=== PATIENT | female | born 1990 | race Caucasian/White ===

== ENCOUNTER → 2018-04-26 | Outpatient (CLI) | payer OTHER ==
--- NOTE | 2018-04-26 16:38 | RADIOLOGY REPORT (SQ) ---
EXAM DESCRIPTION: C SP 4 OR 5 VIEWS COMPLETED DATE/TIME: 04/26/2018 4:21 pm REASON FOR STUDY: CERVICALGIA,PAIN IN RIGHT ARM M79.601 PAIN IN RIGHT ARM M54.2 CERVICALGIA COMPARISON: 02/24/2012 NUMBER OF VIEWS: Five views. TECHNIQUE: AP, lateral, obliques and odontoid radiographic images acquired of the cervical spine. LIMITATIONS: Oblique images are not optimally positioned. FINDINGS: MINERALIZATION: Normal. ALIGNMENT: The cervical spine is in flexion which may be positional in nature or related to some musc le spasm. VERTEBRAE: Vertebral bodies of normal height. DISCS: No significant osteophytes or sclerosis. Disc height maintained. FORAMINA: Not well evaluated due to suboptimal obliques. LATERAL AND POSTERIOR ELEMENTS: Facets, lateral masses and spinous processes without significant find ings. HARDWARE: None in the spine. SOFT TISSUES: No masses or calcifications. Lung apices clear. OTHER: No other significant finding. IMPRESSION: The cervical spine is in flexion. Exam is otherwise negative. TECHNICAL DOCUMENTATION: JOB ID: [id number] [employer]- All Rights Reserved Reading location - IP/workstation name: [email or web address]
== END ==
LOC: OD 15:55
PROVIDERS: ATTEND Physician Assistant
DX: M54.2 Cervicalgia (principal); M79.601 Pain in right arm
CPT/HCPCS: 72050

== ENCOUNTER → 2018-06-13 | Outpatient (CLI) | payer OTHER | LOC: LAB 17:53 | PROVIDERS: ATTEND Nurse Practitioner Family | DX: R30.0 Dysuria (principal); N30.90 Cystitis, unspecified without hematuria | CPT/HCPCS: 87086; 87088; 87186 ==

== ENCOUNTER → 2018-11-05 | Outpatient (CLI) | payer OTHER ==
[2018-11-05 13:05] LABS: FREE T3 4.95 pg/mL (2.77-5.27); FREE T4 (FREE THYROXINE) 0.88 ng/dL (0.78-2.19)
[2018-11-05 13:18] LABS: THYROID STIMULATING HORMONE 1.16 uIU/mL (0.47-4.68)
[2018-11-06 07:40] LABS: THYROID PEROXIDASE (TPO) AB 15 IU/mL (0-34)
[2018-11-06 08:52] LABS: THYROGLOBULIN AB SO <1.0 IU/mL (0.0-0.9)
== END ==
LOC: OD 11:16
PROVIDERS: ATTEND Surgery
DX: E04.1 Nontoxic single thyroid nodule (principal)
CPT/HCPCS: 36415; 84439; 84443; 84481; 86376

== ENCOUNTER 2018-12-15 05:35 | Observation (INO) | payer OTHER ==
[2018-12-08 09:50] LABS: HEMOGLOBIN 14.9 g/dL (12.0-15.5); MEAN CORPUSCULAR HEMOGLOBIN 30.4 pg (27.0-33.4); MEAN CORPUSCULAR HGB CONC 34.6 g/dL (32.0-36.0); MEAN CORPUSCULAR VOLUME 88 fl (80-97); PLATELET COUNT 195 10^3/uL (150-450); RED BLOOD COUNT 4.91 10^6/uL (3.72-5.28); RED CELL DISTRIBUTION WIDTH 12.7 % (11.5-14.0); WHITE BLOOD COUNT 6.5 10^3/uL (4.0-10.5)
[2018-12-08 10:15] LABS: ANION GAP 9 (5-19); BLOOD UREA NITROGEN 14 mg/dL (7-20); CALCIUM 10.1 mg/dL (8.4-10.2); CARBON DIOXIDE 29 mmol/L (22-30); CHLORIDE 107 mmol/L (98-107); GLUCOSE 103 mg/dL (75-110); POTASSIUM 4.8 mmol/L (3.6-5.0); SODIUM 144.7 mmol/L (137-145)
[~2018-12-15 05:35] MED LIST: CEFAZOLIN 1 GM/D5W RTU 1 GM/50 ML RTUPB IV PRN; DEXTROSE 5%-LACTATED RINGERS 1,000 ML IV PRN
[2018-12-15] MEDS ORDERED: CEFAZOLIN 1 GM/D5W RTU 1 GM/50 ML RTUPB IV ONE (06:25)
[2018-12-15] MEDS ORDERED: HYDROMORPHONE HCL INJ/PF 2 MG/ML AMPULE ONE (07:04)
[2018-12-15] MEDS ORDERED: MIDAZOLAM 2 MG/2 ML INJ ONE (07:04)
[2018-12-15] MEDS ORDERED: FENTANYL CITRATE INJ/PF 250 MCG/5 ML AMPULE ONE (07:04)
[2018-12-15] MEDS ORDERED: LIDOCAINE 2% INJ-PF (100 MG/5 ML) SYRINGE ONE (07:04)
[2018-12-15] MEDS ORDERED: PROPOFOL INJ 200 MG/20 ML VIAL IV ONE (07:05)
[2018-12-15] MEDS ORDERED: MICROFIBRILLAR COLLAGEN 1 GM PACK ONE (07:15)
[2018-12-15] MEDS ORDERED: SCOPOLAMINE HYDROBROMIDE 1.5 MG PATCH.TD72 ONE (07:20)
[2018-12-15] MEDS ORDERED: VASOPRESSIN INJ 20 UNIT/1 ML VIAL ONE (08:35)
[2018-12-15] MEDS ORDERED: SUGAMMADEX SODIUM 200 MG/2 ML SDV IV ONE (09:20)
[2018-12-15] MEDS ORDERED: MEPERIDINE HCL/PF INJ 25 MG/1 ML DISP.SYRIN IV PRN (09:34)
[2018-12-15] MEDS ORDERED: MORPHINE SULFATE 10 MG/ML INJ IV PRN ×2 (09:34→12:46)
[2018-12-15] MEDS ORDERED: PROMETHAZINE HCL INJ 25 MG/1 ML VIAL IV PRN ×2 (09:34)
[2018-12-15] MEDS ORDERED: FENTANYL CITRATE INJ/PF 100 MCG/2 ML AMPUL IV PRN ×3 (09:34)
[2018-12-15] MEDS ORDERED: DIPHENHYDRAMINE HCL 50 MG/ML VIAL IV PRN (09:34)
[2018-12-15] MEDS ORDERED: CEFAZOLIN INJ 1 GM VIAL ONE (11:43)
--- NOTE | 2018-12-15 12:42 | Operative Report ---
Operative Report DATE OF SURGERY: 12/15/18 PREOPERATIVE DIAGNOSIS: 1. Multinodular goiter with depressive symptoms and tr acheal deviation. 2. Morbid obesity. 3. Family history of thyroid cancer POSTOPERATIVE DIAGNOSIS: Same with hyperparathyroidism OPERATION: 1. Total thyroidectomy with isthmusectomy. 2. Right lower parathyroidectomy. 3. Extremely difficult modifier SURGEON: ABDI GAVIRIA 1[employer] RESEARCHER: FARZANEH OLIVARES ANESTHESIA: GA TISSUE REMOVED OR ALTERED: Right thyroid lobe; left thyroid lobe; nodule from right thyroid lobe; right lower parathyroid gland COMPLICATIONS: None ESTIMATED BLOOD LOSS: 75 cc INTRAOPERATIVE FINDINGS: See below PROCEDURE: The patient was seen in the preop holding area where the neck was marked for a standard transcervical incision by Dr. Gaviria. She was then taken to the main operating room where general anesthesia was induced. She was placed in the semi-lithotomy position, neck extended for optimal exposure to the anterior neck. Elevation of the upper back achieved with heat roll. Arms tucked at the sides. The neck was prepped and draped in a sterile fashion. Instrumentation was set up for open neck exploration. Surgical plan surgical timeout were conducted. A standard transcervical incision was made in the mid neck at the site of markings performed preoperatively. Superior and inferior skin and platysma flaps were raised with electrocautery. Sternohyoid and sternothyroid muscles divided midline along the septum. We approached the right thyroid lobe first because of the massive thyromegaly, and tracheal deviation to the left. The strap muscles were elevated off the anterior surface of the right thyroid lobe. The right lobe was multinodular, and significantly enlarged. Tracheal deviation to the left confirmed intraoperatively as well as during endotracheal intubation. The strap muscles came off of the anterior surface uneventful. We mobilized the inferior thyroid pole from its vascular attachments. The right inferior parathyroid gland was noted to be enlarged. The dissection was now taken methodically taking the loose areolar tissue off of the anterior and lateral aspect of the right lobe, moving cephalad, careful to now preserve the vasculature to the right upper parathyroid gland. We divided the isthmus uneventfully with electrocautery. Superior pole right side was now taken down betwee clips. Working a circumferential fashion, with the gland coming off of the anterior surface of the trachea uneventfully, we fully noted the right recurrent laryngeal nerve splayed out over 1 of the large nodules. The distance was approximately 2 cm from the normal contour of the nerve at this point in the tracheal groove. The dissection was performed meticulously with scissors. The nerve was carefully elevated off of the thyroid parenchyma, allowing it to receive gently in the lateral and posterior position. Because of the precarious position of the right recurrent laryngeal nerve, the increased level of technical difficulty dissecting it off of the gland, and the time required, the extremely difficult modifier is used in this documentation. Eventually all final attachments between the right lobe of the thyroid gland, and the lateral aspect of the trachea were divided. The specimen was broken up in a piecemeal fashion due to the Terry clamps. Right lobe was sent to pathology for permanent analysis as specimen A. The right upper parathyroid g land appeared slightly enlarged but not pathologically. A small nodule coming off of the anterior surface of the most apical nodule was sent to pathology as specimen C. It was analyzed by frozen section by Dr. Kenny and felt to represent thyroid tissue. This action was performed after the left thyroid lobe was removed. Because of the intraoperative findings of an enlarged right lower parathyroid gland and in the preoperative calcium level of 10.1, checked a PTH level during the right thyroid lobectomy. It came back 139. Patient was having labile blood pressure throughout the majority of the case and TSH level checked and it was found to be normal also during the course of the operation. Given the stability of the clinical condition, we felt that the completion left lobectomy was indicated. Of the left lobe was goitrous but not as large as the right. Surgeon repositioned himself onto the patient's right side, and the strap muscles elevated off of the the left thyroid lobe anterior surface. The dissection was completed in a similar fashion to the right. Fortunately the left lobe was not as enlarged as the right. It also came off of the trachea uneventfully. The left parathyroid gland was identified and preserved. It was of normal size perhaps 30 to 50 mg. The left upper parathyroid gland was felt to be in a bit of fatty tissue and also appeared to be of normal size. Again on the left side the recurrent laryngeal nerve was identified but it was in its normal location, without any splaying or distortion. It was unharmed during the dissection. The lateral and posterior attachments between the left thyroid lobe, and the trachea were taken again between clips. The specimen was sent to pathology after removing all clips; it was labeled specimen B Of note after the left lobe was removed, the patient's blood pressure lability stabilized. At this point I do consensus from my colleagues Dr. Salcedo and Milvia regarding optimal management strategy for the discovery of intraoperative hyperparathyroidism, with hypercalcemia. Admittedly the levels of elevation were modest at best. Nonetheless the consensus amongst the 3 surgeons was that a right lower parathyroidectomy would be appropriate given its enlarged size compared to the right upper left lower and left upper glands, which were all felt to be of normal size range. Therefore the right lower parathyroid gland was amputated from its pedicle between clips. It was sent to pathology in specimen labeled D and felt to represent parathyroid tissue by Dr. Delvin Kenny. It weighed in at 195 mg. At this point we waited about 15 minutes after the parathyroidectomy, and obtained a PTH level. At the time of this dictation the level was still pending. I felt that closure was appropriate. The patient remained hemodynamically stable. Avitene was placed in the recesses of the neck, and the neck closed in layers including strap muscles platysma and skin with 2-0 Vicryl, 2-0 Vicryl, 3-0 Vicryl. The neck skin was closed with Dermabond glue. Patient tolerated the procedure well, was extubated uneventfully, and taken to recovery room in stable condition. The condition of her voice was pending at time of dictation. The physician welder assistant, Ms. Verduzco, provided assistance during this case by: Assisting with retracting tissue, instillation of local anesthesia and closure of skin incisions.
[2018-12-15] MEDS ORDERED: KETOROLAC TROMETHAMINE 10 MG TABLET PO PRN (12:57)
[2018-12-15] MEDS: KETOROLAC TROMETHAMINE INJ/PF 30 MG/1 ML SDV IV PRN ×2 (13:55→20:10)
[2018-12-15] MEDS: DEXTROSE 5%-LACTATED RINGERS 1,000 ML IV PRN ×2 (13:55→22:41)
[2018-12-15] MEDS ORDERED: ONDANSETRON HCL INJ/PF 4 MG/2 ML SDV ONE ×2 (14:14→14:57)
[2018-12-15] MEDS ORDERED: METOCLOPRAMIDE HCL INJ/PF 10 MG/2 ML SDV ONE (14:57)
[2018-12-15] MEDS ORDERED: NEOSTIGMINE METHYLSULFATE 10 MG/10 ML VIAL ONE (14:57)
[2018-12-15] MEDS ORDERED: DEXAMETHASONE SOD PHOSPHATE INJ 4 MG/1 ML VIAL ONE (14:57)
[2018-12-15] MEDS ORDERED: SUCCINYLCHOLINE CHLORIDE INJ 200 MG/10 ML VIAL ONE (14:57)
[2018-12-15] MEDS ORDERED: GLYCOPYRROLATE 1 MG/5 ML VIAL ONE (14:57)
[2018-12-15] MEDS ORDERED: ROCURONIUM BROMIDE INJ 50 MG/5 ML VIAL IV ONE (14:57)
[2018-12-15] MEDS ORDERED: PHENYLEPHRINE HCL INJ/PF 10 MG/1 ML SDV ONE (14:57)
[2018-12-15] MEDS ORDERED: ONDANSETRON HCL INJ/PF 4 MG/2 ML SDV IV PRN (15:04)
[2018-12-15] MEDS: ACETAMINOPHEN 1,000 MG/100 ML RTUPB IV SCH ×2 (17:47→23:14)
[2018-12-15] MEDS ORDERED: ACETAMINOPHEN INJ/PF 1000 MG/100 ML SDV IV SCH (18:00)
[2018-12-15 18:56] LABS: ALBUMIN 4.5 g/dL (3.5-5.0); CALCIUM 9.2 mg/dL (8.4-10.2)
[2018-12-16] MEDS: ACETAMINOPHEN 1,000 MG/100 ML RTUPB IV SCH (05:18)
[2018-12-16] MEDS: KETOROLAC TROMETHAMINE INJ/PF 30 MG/1 ML SDV IV PRN (05:25)
[2018-12-16 06:58] LABS: CALCIUM 8.6 mg/dL (8.4-10.2)
[2018-12-16 08:26] VITALS: BP 122/72
[2018-12-16] MEDS ORDERED: NALOXONE HCL INJ/PF 0.4 MG/1 ML SDV IV ONE (10:45)
--- NOTE | 2018-12-16 11:24 | PDOC PROGRESS REPORT ---
Subjective Progress Note for:: 12/16/18 Subjective:: Patient has neck pain and stiffness and some increased discomfort in the right side of her neck. Otherwise she is tolerated clear liquids, been out of bed and voiding. Reason For Visit: THYROID NODULE Physical Exam Vital Signs: Temp Pulse Resp BP Pulse Ox 98.0 F 82 17 122/72 99 12/16/18 08:00 12/16/18 08:00 12/16/18 08:00 12/16/18 08:00 12/16/18 08:00 Intake & Output 12/15/18 12/16/18 12/17/18 06:59 06:59 06:59 Intake Total 0 3930 Output Total 550 Balance 0 3380 Weight 111.13 kg 117.1 kg General appearance: PRESENT: no acute distress Head exam: PRESENT: atraumatic Neck exam: PRESENT: other - Neck surgery less than 24 hours ago. Neck looks g ood. Glue is intact. There is no hematoma swelling cellulitis patient does have marked decreased range of motion of her neck. Of note patient does have some mild dysphonia likely due to oral tracheal intubation and extensive Results Laboratory Results: 12/08/18 09:07 12/08/18 09:07 12/15/18 12/15/18 12/16/18 12:06 18:22 06:06 Calcium 9.2 8.6 Albumin 4.5 4.0 PTH Intact 13.0 Assessment & Plan - Diagnosis (1) Multinodular goiter Is this a current diagnosis for this admission?: Yes Plan: Impression: Patient is 1 day status post total thyroidectomy, with concomitant right lower parathyroidectomy for hyperparathyroidism discovered intraoperatively. Patient doing well and has had no postoperative complications. Her PTH level dropped from 132 to 13, and her calcium level dropped from 10.1-8.6. She is asymptomatic in terms of her musculoskeletal system. Recommendations: 1. We will discharge patient home on clear liquids, p.o. pain medication, Toradol. We will also start her on Synthroid 150 mcg p.o. daily and 2 g of calcium gluconate daily. 2. We will get an appointment to follow-up with us in [facility] in 1 week, or sooner if she develops any problem
[2018-12-16] MEDS ORDERED: LEVOTHYROXINE SODIUM 0.15 MG TABLET PO ONE (11:45)
--- NOTE | 2018-12-16 13:19 | DISCHARGE SUMMARY E ---
Discharge Summary NAME: GUME DELGADO : 1990 AGE: 28Y ADMITTED: 12/15/2018 DISCHARGED: 12/16/2018 REASON FOR ADMISSION: Multinodular goiter. SUMMARY OF HOSPITALIZATION: The patient is a 28-year-old white female with a history of obesity, multinodular goiter with compressive symptoms who was brought to ambulatory surgery for total thyroidectomy. The procedure was performed by Dr. Gaviria. She tolerated the procedure well and had no immediate postoperative complications. Intraoperatively, the patient was found to have an enlarged right lower parathyroid gland. Her preoperative calcium level was 10.1. An intraoperative PTH level was obtained and was 132. The right lower parathyroid gland was removed, and postoperatively, the patient's PTH level dropped to 13. The impression was that the patient was suffering from primary hyperparathyroidism. Postoperatively, the patient had some hoarseness consistent with a prolonged operation, orotracheal intubation. She tolerated a diet and had no untoward events other than neck stiffness. Her postoperative calcium came down to 8.6. She was given a starting dose of Synthroid at 150 mcg on 12/16/2018. By mid day of the first postoperative day, she was felt to receive maximum benefit from the hospitalization and was discharged home. FINAL DIAGNOSES: 1. Multinodular goiter status post total thyroidectomy done by Dr. Gaviria. 2. Primary hyperparathyroidism, discovered intraoperatively, treated with right lower parathyroidectomy by Dr. Gaviria. 3. Obesity. DISPOSITION: The patient will be discharged home in the care of family. Follow up with Dr. Gaviria at [facility] in 1 week. She will take Synthroid 150 mcg p.o. q. day; Toradol p.r.n. pain, and calcium, 1 g p.o. b.i.d. She will contact our office if she has any concerns. DICTATING PHYSICIAN: ABDI GAVIRIA M.D. [id number] PHY#: [id number] ID: [id number] JOB#: [id number] ACCT: [id number] cc:ABDI GAVIRIA M.D. >
[2018-12-17] MEDS ORDERED: LEVOTHYROXINE SODIUM 0.15 MG TABLET PO SCH (10:00)
== END 2018-12-16 12:12 | disposition home or self-care (01) ==
LOC: OROUT 05:35 → INTOOBSV 12:46 → 4S 12:46
PROVIDERS: ADMIT Surgery; ATTEND Surgery
PROC: 0GBJ0ZZ Excision of Thyroid Gland Isthmus, Open Approach (ICD-10-PCS; 2018-12-15)
PROC: 0GTN0ZZ Resection of Right Inferior Parathyroid Gland, Open Approach (ICD-10-PCS; 2018-12-15)
PROC: 0GTK0ZZ Resection of Thyroid Gland, Open Approach (ICD-10-PCS; principal; 2018-12-15 07:30)
DX: E04.2 Nontoxic multinodular goiter (principal); E21.0 Primary hyperparathyroidism; J39.8 Other specified diseases of upper respiratory tract; E66.01 Morbid (severe) obesity due to excess calories; R49.0 Dysphonia; Z80.0 Family history of malignant neoplasm of digestive organs; Z79.890 Hormone replacement therapy; Z80.8 Family history of malignant neoplasm of other organs or systems
CPT/HCPCS: 36415 ×3; 82040 ×2; 82310 ×2; 84443; 85027; 81025; 80048; 83970; 88305 ×2; 88307 ×2; 88331 ×2; 94799; 00320; 60240; 60500; G0378 ×2; J2250; J0690 ×2; J3490 ×6; J1100; J3010; J2001; J1885 ×2; J2765; J2710; J1170; J2370; J0330; J2405; J7121; J2704; J0131 ×2; 320

== ENCOUNTER → 2018-12-22 | Outpatient (CLI) | payer OTHER | LOC: OD 09:51 | PROVIDERS: ATTEND Physician Assistant Surgical | DX: Z98.890 Other specified postprocedural states (principal) | CPT/HCPCS: 36415; 82310 ==

== ENCOUNTER → 2019-01-04 | Outpatient (CLI) | payer OTHER | LOC: OD 16:37 | PROVIDERS: ATTEND Surgery | DX: E89.0 Postprocedural hypothyroidism (principal) | CPT/HCPCS: 36415; 82310 ==

== ENCOUNTER → 2019-02-04 | Outpatient (CLI) | payer OTHER ==
[2019-02-04 10:19] LABS: FREE T3 3.5 pg/mL (2.77-5.27); FREE T4 (FREE THYROXINE) 0.73 ng/dL (0.78-2.19)
[2019-02-04 10:33] LABS: THYROID STIMULATING HORMONE 7.84 uIU/mL (0.47-4.68)
== END ==
LOC: OD 08:43
PROVIDERS: ATTEND Physician Assistant Surgical
DX: E89.0 Postprocedural hypothyroidism (principal); R53.83 Other fatigue
CPT/HCPCS: 36415; 84439; 84443; 84481

== ENCOUNTER → 2019-02-16 | Outpatient (CLI) | payer OTHER | LOC: OD 08:54 | PROVIDERS: ATTEND Physician Assistant Surgical | DX: E89.0 Postprocedural hypothyroidism (principal) | CPT/HCPCS: 36415; 82310 ==

== ENCOUNTER → 2019-03-28 | Outpatient (CLI) | payer OTHER ==
[2019-03-28 10:26] LABS: FREE T3 4.48 pg/mL (2.77-5.27); FREE T4 (FREE THYROXINE) 0.86 ng/dL (0.78-2.19)
[2019-03-28 10:39] LABS: THYROID STIMULATING HORMONE 4.07 uIU/mL (0.47-4.68)
== END ==
LOC: OD 09:04
PROVIDERS: ATTEND Surgery
DX: E04.1 Nontoxic single thyroid nodule (principal)
CPT/HCPCS: 36415; 84439; 84443; 84481

== ENCOUNTER 2020-01-11 11:44 | Emergency (ER) | payer OTHER ==
[2020-01-11] MEDS ORDERED: ONDANSETRON HCL INJ/PF 4 MG/2 ML SDV IV ONE (12:45)
[2020-01-11] MEDS ORDERED: MORPHINE SULFATE 10 MG/ML INJ IV ONE (12:45)
[2020-01-11] MEDS ORDERED: NORMAL SALINE 1000 ML 1,000 ML IV ONE (12:45)
[2020-01-11] MEDS ORDERED: KETOROLAC TROMETHAMINE INJ/PF 30 MG/1 ML SDV IV ONE (12:45)
[2020-01-11 13:04] LABS: ABSOLUTE EOSINOPHILS # (AUTO) 0.1 10^3/uL (0.0-0.6); ABSOLUTE LYMPHOCYTES (AUTO) 2.9 10^3/uL (0.5-4.7); ABSOLUTE MONOCYTES (AUTO) 0.4 10^3/uL (0.1-1.4); ABSOLUTE NEUT (AUTO) 4.5 10^3/uL (1.7-8.2); BASOPHILS % (AUTO) 0.5 % (0-2); EOSINOPHILS % (AUTO) 1.9 % (0-6); HEMATOCRIT 42.6 % (36.0-47.0); LYMPHOCYTES % (AUTO) 36.3 % (13-45); MEAN CORPUSCULAR HEMOGLOBIN 30.8 pg (27.0-33.4); MEAN CORPUSCULAR HGB CONC 35.1 g/dL (32.0-36.0); MEAN CORPUSCULAR VOLUME 88 fl (80-97); MONOCYTES % (AUTO) 4.4 % (3-13); PLATELET COUNT 217 10^3/uL (150-450); RED BLOOD COUNT 4.86 10^6/uL (3.72-5.28); RED CELL DISTRIBUTION WIDTH 12.7 % (11.5-14.0); SEGMENTED NEUTROPHILS % (AUTO) 56.9 % (42-78); TOTAL CELLS COUNTED % (AUTO) 100 %
[2020-01-11 13:05] LABS: APPEARANCE,URINE CLEAR; BILIRUBIN,URINE NEGATIVE (NEGATIVE); COLOR,URINE YELLOW; GLUCOSE, URINE NEGATIVE (NEGATIVE); KETONES,URINE NEGATIVE (NEGATIVE); LEUKOCYTE ESTERASE,URINE NEGATIVE (NEGATIVE); NITRITE,URINE NEGATIVE (NEGATIVE); PROTEIN,URINE NEGATIVE (NEGATIVE); URINE SPECIFIC GRAVITY 1.014; UROBILINOGEN,URINE NEGATIVE mg/dL (<2.0)
--- NOTE | 2020-01-11 13:15 | ER Document Report ---
Entered by ARISTEO HERNANDEZ SCRIBE 01/11/20 1237 Acting as scribe for:PARISH KENNEDY MD ED GI/ - General Chief Complaint: Flank Pain Stated Complaint: FLANK PAIN/VOMITING Time Seen by Provider: 01/11/20 12:01 Primary Care Provider: ABDI REBOLLEDO MD [ACTIVE STAFF] - Follow up as needed Mode of Arrival: Ambulatory Information source: Patient Notes: This 29-year-old female patient with a history of kidney stones presents to the emergency department today with complaints of left-sided flank pain which began abruptly this morning at 8 AM. Patient states her last kidney stone was about 10 years ago and it felt very similar to this pain today. Patient states the pain wraps around to her left lower abdomen. Patient has had associated nausea and vomiting. TRAVEL OUTSIDE OF THE [place] IN LAST 30 DAYS: No - Related Data Allergies/Adverse Reactions: Shellfish * [Shellfish] Allergy (Verified 12/08/18 08:41) Home Medications: synthroid, armor thyroid, control Past Medical History - General Information source: Patient - Social History Smoking Status: Never Smoker Cigarette use (# per day): No Frequency of alcohol use: None Drug Abuse: None Lives with: Family Family History: Reviewed & Not Pertinent Renal/ Medical History: Reports: Hx Kidney Stones Surgical Hx: Negative - Immunizations Hx Diphtheria, Pertussis, Tetanus Vaccination: - UNSURE Review of Systems - Review of Systems Constitutional: No symptoms reported EENT: No symptoms reported Cardiovascular: No symptoms reported Respiratory: No symptoms reported Gastrointestinal: See HPI, Abdominal pain, Nausea, Vomiting Genitourinary: See HPI, Flank pain - left Female Genitourinary: No symptoms reported Musculoskeletal: No symptoms reported Skin: No symptoms reported Hematologic/Lymphatic: No symptoms reported Neurological/Psychological: No symptoms reported -: Yes All other systems reviewed and negative Physical Exam - Vital signs Vitals: Temp Pulse Resp BP Pulse Ox 98.2 F 95 20 132/92 H 95 01/11/20 11:47 01/11/20 11:47 01/11/20 11:47 01/11/20 11:47 01/11/20 11:47 - Notes Notes: Physical Exam: General: Alert, appears uncomfortable, standing up pacing around the room. HEENT: Normocephalic. Atraumatic. PERRL. Extraocular movements intact. Oropharynx clear. Neck: Supple. Non-tender. Respiratory: No respiratory distress. Clear and equal breath sounds bilaterally. Cardiovascular: Regular rate and rhythm. Abdominal: Obese, left abdominal tenderness with palpation. No distension. Normal Bowel Sounds. Back: Left CVA tenderness to percussion. Extremities: Moves all four extremities. Upper extremities: Normal inspection. Normal ROM. Lower extremities: Normal inspection. No edema. Normal ROM. Neurological: Normal cognition. AAOx4. Normal speech. Psychological: Normal affect. Normal Mood. Skin: Warm. Dry. Normal color. Course - Vital Signs Vital signs: Temp Pulse Resp BP Pulse Ox 98.2 F 95 20 132/92 H 95 01/11/20 11:47 01/11/20 11:47 01/11/20 11:47 01/11/20 11:47 01/11/20 11:47 - Laboratory Result Diagrams: 01/11/20 12:51 01/11/20 12:51 Laboratory results interpreted by me: 01/11/20 01/11/20 12:51 12:51 Total Protein 8.4 H Urine Blood SMALL H - Diagnostic Test Radiology reviewed: Image reviewed, Reports reviewed - Noncontrasted CT scan abdomen pelvis shows a 2 mm stone at the left UVJ without hydronephrosis or hydroureter. There are punctate calcifications in both kidneys. Discharge - Discharge Clinical Impression: Renal colic on left side Condition: Stable Disposition: HOME, SELF-CARE Additional Instructions: Kidney Stone You are passing or have passed a kidney stone. These stones are usually due to increased calcium or uric acid concentrations in your urine. Stones within the kidney itself are not painful. The pain occurs as the stone leaves the kidney to pass down the long tube, called the ureter, leading to the bladder. If the stone is small, it will usually pass by itself. Most patients can pass the stone at home. You will usually receive medications for pain, nausea or vomiting, and sometimes a medication to assist in passing the kidney stone. However, if the pain is very severe or if vomiting prevents you from taking oral pain medications, you may need to return for further treatment. Drink three or four quarts of fluids per day. You will be given pain medication (if needed) and urine strainers. Strain all your urine to see if the stone passes. If your doctor has asked you to bring the stone in for analysis, return with the stone once it has passed. Return if pain or vomiting become severe, if you develop a high fever, if you are unable to pass your urine, or if other unusual symptoms occur. You have a 2 mm stone in the left ureter right at the junction with the bladder. Drink plenty of fluids. Take ibuprofen 600 mg every 6-8 hours. Take the pain medication as prescribed if needed. Follow-up with your primary care provider or with [facility] if not i jeffoving. RETURN TO THE EMERGENCY ROOM IF ANY NEW OR WORSENING SYMPTOMS. Prescriptions: Oxycodone HCl/Acetaminophen [Percocet 5-325 mg Tablet] 1 tab PO ASDIR PRN #12 tablet PRN Reason: Referrals: [facility] [Provider Group] - Follow up as needed I personally performed the services described in the documentation, reviewed and edited the documentation which was dictated to the scribe in my presence, and it accurately records my words and actions.
[2020-01-11 13:28] LABS: ALBUMIN 4.9 g/dL (3.5-5.0); ALKALINE PHOSPHATASE 50 U/L (38-126); ANION GAP 10 (5-19); ASPARTATE AMINO TRANSFERASE 30 U/L (14-36); BILIRUBIN,TOTAL 0.8 mg/dL (0.2-1.3); BLOOD UREA NITROGEN 13 mg/dL (7-20); CALCIUM 9.8 mg/dL (8.4-10.2); CARBON DIOXIDE 25 mmol/L (22-30); CHLORIDE 106 mmol/L (98-107); GLUCOSE 105 mg/dL (75-110); POTASSIUM 4.2 mmol/L (3.6-5.0); TOTAL PROTEIN 8.4 g/dL (6.3-8.2)
--- NOTE | 2020-01-11 13:54 | RADIOLOGY REPORT (SQ) ---
EXAM DESCRIPTION: CT ABD/PELVIS NO ORAL OR IV IMAGES COMPLETED DATE/TIME: 01/11/2020 1:11 pm REASON FOR STUDY: Left flank pain COMPARISON: None. TECHNIQUE: CT scan of the abdomen and pelvis performed without intravenous or oral contrast. Images reviewed with lung, soft tissue, and bone windows. Reconstructed coronal and sagittal MPR images revi ewed. All images stored on PACS. All CT scanners at this facility use dose modulation, iterative reconstruction, and/or weight based d osing when appropriate to reduce radiation dose to as low as reasonably achievable (ALARA). [facility]: Dose Right [facility]: CareDose [facility]: Dose Right [facility]: Teradose 4D [facility]: Smart [employer] RADIATION DOSE: CT Rad equipment meets quality standard of care and radiation dose reduction techniq ues were employed. CTDIvol: 18.4 mGy. DLP: 1112 mGy-cm.mGy. LIMITATIONS: None. FINDINGS: LOWER CHEST: No significant findings. No nodules or infiltrates. NON-CONTRASTED LIVER, SPLEEN, ADRENALS: Evaluation limited by lack of IV contrast. No identified sign ificant masses. PANCREAS: No masses. No peripancreatic inflammatory changes. GALLBLADDER: No identified stones by CT criteria. No inflammatory changes to suggest cholecystitis. RIGHT KIDNEY AND URETER: No suspicious masses. Assessment limited by lack of IV contrast. There are couple of tiny nonobstructing intrarenal calculi. No hydronephrosis or hydroureter. LEFT KIDNEY AND URETER: No suspicious masses. Assessment limited by lack of IV contrast. There is a 2 mm calculus at the left ureterovesical junction. No hydronephrosis or hydroureter. AORTA AND RETROPERITONEUM: No aneurysm. No retroperitoneal masses or adenopathy. BOWEL AND PERITONEAL CAVITY: No obvious masses or inflammatory changes. No free fluid. APPENDIX: Normal. PELVIS, BLADDER, AND ABDOMINAL WALL:No abnormal masses. No free fluid. Bladder normal. BONES: No significant findings. OTHER: No other significant finding. IMPRESSION: There is a 2 mm calculus at the left ureterovesical junction with no significant hydrone phrosis or hydroureter. COMMENT: Quality ID # [id number]: Final reports with documentation of one or more dose reduction techniques (e.g., Automated exposure control, adjustment of the mA and/or kV according to patient size, use of iterative reconstruction technique) TECHNICAL DOCUMENTATION: JOB ID: [id number] 2010 [employer]- All Rights Reserved Reading location - IP/workstation name: [email or web address]
[2020-01-11 14:37] VITALS: BP 128/72
== END 2020-01-11 14:45 | disposition home or self-care (01) ==
LOC: ER 11:44
DX: N23 Unspecified renal colic (principal); R11.10 Vomiting, unspecified; Z79.899 Other long term (current) drug therapy; Z87.442 Personal history of urinary calculi
CPT/HCPCS: 99284; 96361; 96374; 96375; 36415; 85025; 80053; 81001; 74176; J1885; J2270; J2405; J7030